=== PATIENT | male | born 1970 | race American Indian/Alaskan Native ===

== ENCOUNTER 2017-09-09 09:57 | Emergency (ER) | payer MEDICAID, OTHER ==
[2017-09-09 09:58] VITALS: BMI 21.9
[2017-09-09 10:09] VITALS: BP 110/70; PULSE 72; RESP 20; TEMP 97.9; O2SAT 100
--- NOTE | 2017-09-09 15:48 | C.PDOC ---
History Of Present Illness 47 year old male presents to the ER with a complaint of sore throat for the past 5 days, associated with a dry cough and fever of 101 last night. Patient states he took tylenol and feels slightly better but symptoms persists. Patient notes he smokes daily. Denies sick contact or recent travel. Chief Complaint (Nursing): Flu-like Symptoms History Per: Patient History/Exam Limitations: no limitations Onset/Duration Of Symptoms: Days Current Symptoms Are (Timing): Still Present Location Of Pain: Throat Sick Contacts (Context): None Associated Symptoms: Fever, Sore Throat, Cough Ear Symptoms: Bilateral: None Recent travel outside of the [place]: No Past Medical History Reviewed: Historical Data, Nursing Documentation, Vital Signs Vital Signs: Last Vital Signs Temp 97.9 F 09/09/17 10:05 Pulse 72 09/09/17 10:05 Resp 20 09/09/17 10:05 BP 110/70 09/09/17 10:05 Pulse Ox 100 09/09/17 15:50 - Medical History PMH: Gastritis Surgical History: Endoscopy - [facility] Procedures LAPAROTOMY NEC (01/29/15) SUT GASTRIC ULCER SITE (01/29/15) Family History: States: Unknown Family Hx - Social History Hx Alcohol Use: No Hx Substance Use: No - Immunization History Hx Tetanus Toxoid Vaccination: No Hx Influenza Vaccination: No Hx Pneumococcal Vaccination: No Review Of Systems Constitutional: Positive for: Fever ENT: Positive for: Throat Pain. Negative for: Ear Pain, Ear Discharge Respiratory: Positive for: Cough Gastrointestinal: Negative for: Vomiting Physical Exam - Physical Exam Appears: Non-toxic Skin: Normal Color, Warm, Dry Head: Atraumatic, Normacephalic Eye(s): bilateral: Normal Inspection Ear(s): Bilateral: Normal Nose: Normal Oral Mucosa: Moist Throat: Erythema, No Exudate Neck: Normal, Supple Chest: Symmetrical, No Tenderness Cardiovascular: Rhythm Regular Respiratory: Normal Breath Sounds, No Rales, No Rhonchi, No Wheezing Neurological/Psych: Oriented x3, Normal Speech ED Course And Treatment O2 Sat by Pulse Oximetry: 100 (Room air) Pulse Ox Interpretation: Normal Disposition - [facility] - Disposition: HOME/ ROUTINE Disposition Time: 10:40 Condition: GOOD Additional Instructions: Thank you for letting us take care of you today. The emergency medical care you received today was directed at your acute symptoms. If you were prescribed any medication, please fill it and take as directed. It may take several days for your symptoms to resolve. Return to the Emergency Department if your symptoms worsen, do not improve, or if you have any other problems. Please contact your doctor or call one of the physicians/clinics you have been referred to that are listed on the Patient Visit Information form that is included in your discharge packet. Bring any paperwork you were given at discharge with you along with any medications you are taking to your follow up visit. Our treatment cannot replace ongoing medical care by a primary care provider (PCP) outside of the emergency department. Thank you for allowing the [facility] team to be part of your care today. Follow up with your doctor in 5-7 days for re-evaluation and further management. Prescriptions: Amoxicillin 500 mg PO Q8 #21 tablet Ibuprofen [Motrin] 600 mg PO Q6 PRN #20 tab PRN Reason: Pain, Moderate (4-7) Instructions: Sore Throat, Adult (DC) Forms: [facility] [employer] (Slovenian), Work Excuse - Clinical Impression Clinical Impression: Pharyngitis - Scribe Statement The provider has reviewed the documentation as recorded by the Scribe Andrea Coppola All medical record entries made by the Rishiibroland were at my direction and personally dictated by me. I have reviewed the chart and agree that the record accurately reflects my personal performance of the history, physical exam, medical decision making, and the department course for this patient. I have also personally directed, reviewed, and agree with the discharge instructions and disposition.
== END 2017-09-09 10:42 | disposition home or self-care (01) ==
LOC: C.ER 09:57
DX: J02.9 Acute pharyngitis, unspecified (principal); F17.210 Nicotine dependence, cigarettes, uncomplicated

== ENCOUNTER 2017-10-16 10:38 | Emergency (ER) | payer OTHER ==
[2017-10-16 10:38] VITALS: BMI 21.9
[2017-10-16] MEDS ORDERED: Dexamethasone 4 mg/1 ml IM STA (11:26)
--- NOTE | 2017-10-16 11:31 | C.PDOC ---
History Of Present Illness Patient with a PMHx of Arthritis reports that this morning he woke up with sudden onset of pain and swelling to the bilateral elbows and knees. The patient reports this episode was worse than normal which prompted visit. Denies rash, trauma, numbness, weakness, travel, chest pain, SOB. Time Seen by Provider: 10/16/17 11:18 Chief Complaint (Nursing): Upper Extremity Problem/Injury History Per: Patient History/Exam Limitations: no limitations Onset/Duration Of Symptoms: Persistent Current Symptoms Are (Timing): Still Present Quality: "Pain" Pain Scale Rating Of: 5 Exacerbating Factor(s): Movement Recent travel outside of the [place]: No Past Medical History Reviewed: Historical Data, Nursing Documentation, Vital Signs Vital Signs: Last Vital Signs Temp 98.6 F 10/16/17 12:27 Pulse 64 10/16/17 12:27 Resp 16 10/16/17 12:27 BP 132/77 10/16/17 12:27 Pulse Ox 99 10/16/17 12:27 - Medical History PMH: Arthritis, Gastritis Denies: Chronic Kidney Disease Surgical History: Endoscopy - [facility] Procedures LAPAROTOMY NEC (01/29/15) SUT GASTRIC ULCER SITE (01/29/15) Family History: States: No Known Family Hx - Social History Hx Alcohol Use: No Hx Substance Use: No - Immunization History Hx Tetanus Toxoid Vaccination: No Hx Influenza Vaccination: No Hx Pneumococcal Vaccination: No Review Of Systems Except As Marked, All Systems Reviewed And Found Negative. Physical Exam - Physical Exam Appears: Non-toxic, No Acute Distress Skin: Normal Color, Warm, No Rash Head: Atraumatic, Normacephalic Eye(s): bilateral: Normal Inspection Oral Mucosa: Moist Neck: Normal ROM, No Midline Cervical Tenderness, No Paracervical Tenderness, Supple Chest: Symmetrical, No Tenderness Cardiovascular: Rhythm Regular, No Friction Rub, No Murmur Respiratory: Normal Breath Sounds, No Rales, No Rhonchi, No Wheezing Gastrointestinal/Abdominal: Bowel Sounds (active), Soft, No Tenderness, No Guarding, No Rebound Back: Normal Inspection, No CVA Tenderness, No Vertebral Tenderness, No Paraspinal Tenderness Extremity: Normal ROM, No Tenderness, Capillary Refill (< 2 sec), Other ((+) mild swelling to the bilateral posterior elbows and knees. ) Extremity: Bilateral: Normal Color And Temperature Pulses: Left Radial: Normal, Right Radial: Normal, Left Dorsalis Pedis: Normal, Right Dorsalis Pedis: Normal Neurological/Psych: Oriented x3, Normal Speech, Normal Motor Gait: Steady ED Course And Treatment O2 Sat by Pulse Oximetry: 97 Medical Decision Making Medical Decision Making: The patient reports that he had some acid reflux pain. Abdomen is soft, non- tender. Maalox and Pepcid was given, On re-exam, the patient reports improvement of symptoms. Lungs are CTA, heart is RRR, abdomen is soft, non- tender and the patient is tolerating PO well. Ambulatory in the ED with steady gait. Follow up with the medical doctor within 1-2 days. Return if worsened Disposition - Disposition Referrals: Chester Camp MD [Staff Provider] - [facility] [Outside] Disposition: HOME/ ROUTINE Disposition Time: 12:18 Condition: GOOD Additional Instructions: Follow up with the medical doctor within 1-2 days. Return if worsened. Prescriptions: Acetaminophen [Tylenol] 325 mg PO Q6 PRN #30 tab PRN Reason: Pain, Mild (1-3) Famotidine [Pepcid] 20 mg PO BID #20 tab Ibuprofen [Motrin] 1 tab PO TID PRN #30 tab PRN Reason: Pain Instructions: Osteoarthritis (DC), Joint Pain Forms: [facility] (Tunisian), Work Excuse - Clinical Impression Clinical Impression: Joint pain, GERD (gastroesophageal reflux disease)
[2017-10-16] MEDS ORDERED: Alum-Mag Hydrox-Simethicone Susp (30 mL) PO STA (11:47)
[2017-10-16] MEDS ORDERED: Aluminum Hydroxide/Magnesium Hydroxide Susp (30 mL) ONE (11:57)
[2017-10-16 12:27] VITALS: BP 132/77; PULSE 64; RESP 16; TEMP 98.6
[2017-10-16 16:13] VITALS: O2SAT 97
== END 2017-10-16 12:27 | disposition home or self-care (01) ==
LOC: C.ER 10:38
DX: M25.522 Pain in left elbow (principal); M25.521 Pain in right elbow; K21.9 Gastro-esophageal reflux disease without esophagitis
CPT/HCPCS: 96372; 99284; J1100; J1885